=== PATIENT | male | born 1980 | race Caucasian/White ===

== ENCOUNTER 2022-09-18 11:34 | Outpatient (OUT) | payer OTHER, SELFPAY ==
[2022-09-18 12:15] LABS: Calcium Urine Random 19.6 mg/dL (5.1-21.0); Creatinine Urine Random 98.99 mg/dL (20.00-300.00); Sodium Urine Random 121 mmol/L (30-90)
[2022-09-18 12:18] LABS: Carbon Dioxide 29.4 mmol/L (21.0-32.0); Chloride 101 mmol/L (98-107); Estimated GFR (African America >60 (>=60); Estimated GFR (Non-African Ame >60 (>=60); Potassium 3.4 mmol/L (3.5-5.1); Sodium 140 mmol/L (136-145); Uric Acid 5.2 mg/dL (3.5-7.2)
[2022-09-18 12:24] LABS: Calcium 24 Hour Urine 450.8 mg/24hr (100.0-300.0); Sodium 24 Hour Urine 278 mmol/24h (40-220); Total Volume 24 Hour Urine 2300 mL/24hr
[2022-09-20 09:11] LABS: Magnesium, U 6.1 mg/dL (Not Estab.); Magnesium,Urine 24hr 140.3 mg/24 hr (12.0-293.0); Phosphorus, Urine 75.5 mg/dL (Not Estab.); Phosphorus,Urine 24h 1737 mg/24 hr (390-1425); Uric Acid, Urine 19.1 mg/dL (Not Estab.); Uric Acid,Urine 24hr 439.3 mg/24 hr (197.2-1078.7)
[2022-09-20 11:11] LABS: PTH, Intact 18 pg/mL (15-65)
[2022-09-21 13:09] LABS: Citric Acid, U, 24hr 485 mg/24 hr (320-1240); Citric Acid, Urine 211 mg/L (Undefined)
[2022-09-21 15:11] LABS: Oxalates, Urine 13 mg/L (Undefined); Oxalates, Urine 24hr 30 mg/24 hr (7-44)
== END 2022-09-18 11:35 | disposition home or self-care (01) ==
PROVIDERS: Visit Provider Urology
DX: N20.0 Calculus of kidney (principal)
CPT/HCPCS: 36415; 82310; 82340; 82374; 82435; 82507; 82565; 82570; 83735; 83945; 83970; 84105; 84132; 84295; 84300; 84520; 84550; 84560

== ENCOUNTER 2022-10-11 14:22 | Outpatient (OUT) | payer OTHER, SELFPAY ==
--- NOTE | 2022-10-11 14:31 | XR_ITS ---
The [address] [address] Patient Name: JAIR CHAVEZ MRN: [id number] date: 1980 Sex: M Assigned Patient Location: RAD Current Patient Location: [facility] Accession/Order Number: [id number] Exam Date: 10/11/2022 14:35 Report Date: 10/11/2022 15:50 At the request of: RAJI MEJIA Procedure: XR abdomen 1V EXAMINATION: XR abdomen 1V HISTORY: Kidney stone N20.0 COMPARISON: XR KUB 09/04/2022, 07/07/2022 FINDINGS: KIDNEY/URETER - RIGHT: No visible renal or ureteral calcifications. KIDNEY/URETER - LEFT: No visible renal or ureteral calcifications. PELVIS: No visible ureteral stone. Stable right pelvic calcification compatible with a phlebolith. BOWEL: No abnormal dilation or deviation. BONES: No acute abnormality. OTHER: Negative. No abnormal gaseous collections. XR/XR abdomen 1V IMPRESSION: 1. No appreciable urinary tract calculi. Electronically authenticated by: NICCI DOBSON Date: 10/11/2022 15:50
== END 2022-10-11 14:23 | disposition home or self-care (01) ==
PROVIDERS: Visit Provider Urology
DX: N20.0 Calculus of kidney (principal)
CPT/HCPCS: 74018

== ENCOUNTER 2023-10-17 08:09 | Outpatient (OUT) | payer BC, SELFPAY ==
--- NOTE | 2023-10-17 08:16 | XR_ITS ---
The [address] [address] Patient Name: JAIR CHAVEZ MRN: [id number] date: 1980 Sex: M Assigned Patient Location: [facility] Current Patient Location: Accession/Order Number: [id number] Exam Date: 10/17/2023 08:21 Report Date: 10/18/2023 04:46 At the request of: GLYNN PAPPAS Procedure: XR abdomen 1V EXAMINATION: XR abdomen 1V HISTORY: Renal Stone COMPARISON: No relevant comparison available. FINDINGS: KIDNEY/URETER - RIGHT: No visible renal or ureteral calcifications. KIDNEY/URETER - LEFT: 4 mm calcification projecting over mid body of left kidney. PELVIS: No visible ureteral stones. BOWEL: No abnormal dilation or deviation. BONES: No acute abnormality. OTHER: Negative. No abnormal gaseous collections. XR/XR abdomen 1V IMPRESSION: 1. Suspect left nephrolithiasis. Electronically authenticated by: NICCI DOBSON Date: 10/18/2023 04:46
== END 2023-10-17 08:10 | disposition home or self-care (01) ==
LOC: RAD 08:12
PROVIDERS: Visit Provider Physician Assistant
DX: N20.0 Calculus of kidney (principal)
CPT/HCPCS: 74018